=== PATIENT | female | born 1995 | race Caucasian/White ===

== ENCOUNTER 2016-07-13 00:24 | Emergency (ER) | payer OTHER ==
[2016-07-13 00:28] VITALS: BP 139/87
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
== END 2016-07-13 01:33 | disposition left against medical advice (07) ==
LOC: ERH 00:24
DX: F10.121 Alcohol abuse with intoxication delirium (principal); Z04.1 Encounter for examination and observation following transport accident; V48.5XXA Car driver injured in noncollision transport accident in traffic accident, initial encounter; Y92.410 Unspecified street and highway as the place of occurrence of the external cause